=== PATIENT | male | born 1970 | race American Indian/Alaskan Native ===

== ENCOUNTER 2017-07-08 14:59 | Emergency (ER) | payer MEDICARE, MEDICAID ==
[2017-07-08 15:18] VITALS: BMI 23.7
[2017-07-08 15:39] VITALS: O2SAT 98
--- NOTE | 2017-07-08 17:34 | RAD ---
PROCEDURE: Radiographs of the Lumbar Spine. HISTORY: fall 06/25 COMPARISON: Lumbar spine radiographs performed 02/14/16 FINDINGS: BONES: Alignment appears satisfactory. No listhesis. No acute displaced fracture identified. DISC SPACES: Unremarkable. OTHER FINDINGS: None. IMPRESSION: No acute displaced fracture or subluxation identified.
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
[2017-07-08 18:14] VITALS: BP 122/90; PULSE 93; RESP 20; TEMP 98.5
== END 2017-07-08 18:12 | disposition home or self-care (01) ==
LOC: C.ER 14:59
DX: M54.5 Low back pain (principal)

== ENCOUNTER 2017-07-29 08:08 | Emergency (ER) | payer MEDICARE, MEDICAID ==
[2017-07-29 08:09] VITALS: BMI 23.7
[2017-07-29 08:23] VITALS: BP 127/80; PULSE 98; RESP 18; TEMP 97; O2SAT 98
--- NOTE | 2017-07-29 09:16 | C.PDOC ---
History Of Present Illness 46 y/o male presents to ED with complaints of sore throat for 4 days and productive cough developed today. Patient states he took Tylenol with mild relief but symptoms worsen, took 3 dose of amoxicillin from a friend with no relief 3 days ago. Patient reports chills but denies documented fever, neck pain , neck stiffness, nausea, vomiting, chest pain, sob or any other complaints at this time. Time Seen by Provider: 07/29/17 08:49 Chief Complaint (Nursing): ENT Problem History Per: Patient History/Exam Limitations: None Onset/Duration Of Symptoms: Days Current Symptoms Are (Timing): Still Present Past Medical History Reviewed: Historical Data, Nursing Documentation, Vital Signs Vital Signs: Last Vital Signs Temp 97 F L 07/29/17 08:16 Pulse 98 H 07/29/17 08:16 Resp 18 07/29/17 09:20 BP 127/80 07/29/17 08:16 Pulse Ox 98 07/29/17 09:52 - Medical History PMH: Back Problems Surgical History: No Surg Hx Family History: States: No Known Family Hx - Social History Hx Alcohol Use: No Hx Substance Use: No - Immunization History Hx Tetanus Toxoid Vaccination: No Hx Influenza Vaccination: No Hx Pneumococcal Vaccination: No Review Of Systems Constitutional: Positive for: Chills. Negative for: Fever ENT: Positive for: Throat Pain Cardiovascular: Negative for: Chest Pain Respiratory: Negative for: Shortness of Breath Gastrointestinal: Negative for: Nausea, Vomiting Musculoskeletal: Negative for: Neck Pain Skin: Negative for: Rash Physical Exam - Physical Exam Appears: Non-toxic, No Acute Distress Skin: Warm, Dry, No Rash Head: Atraumatic, Normacephalic Eye(s): bilateral: Normal Inspection Ear(s): Bilateral: Normal Oral Mucosa: Moist Throat: Erythema, Exudate, Other (Uvula slightly deviated to right ) Neck: Supple Lymphatic: Adenopathy (Palpable on right chin) Cardiovascular: Rhythm Regular Respiratory: Normal Breath Sounds, No Rales, No Rhonchi, No Wheezing Gastrointestinal/Abdominal: Soft, No Tenderness, No Guarding, No Rebound Neurological/Psych: Oriented x3 ED Course And Treatment O2 Sat by Pulse Oximetry: 98 (RA) Pulse Ox Interpretation: Normal Disposition Counseled Patient/Family Regarding: Diagnosis, Need For Followup, Rx Given - Disposition Referrals: [facility] [Outside] Disposition: HOME/ ROUTINE Disposition Time: 09:14 Condition: STABLE Prescriptions: Ibuprofen [Motrin] 600 mg PO TID #15 tab Penicillin VK [Penicillin VK Tab] 500 mg PO Q6H #40 tab Instructions: Pharyngitis (ED) Forms: [facility] (Barbadian), General Discharge Instructions - POA Present On Arrival: None - Clinical Impression Clinical Impression: Pharyngitis - Scribe Statement The provider has reviewed the documentation as recorded by the Escobar Garcia All medical record entries made by the Escobar were at my direction and personally dictated by me. I have reviewed the chart and agree that the record accurately reflects my personal performance of the history, physical exam, medical decision making, and the department course for this patient. I have also personally directed, reviewed, and agree with the discharge instructions and disposition.
== END 2017-07-29 09:21 | disposition home or self-care (01) ==
LOC: C.ER 08:08
DX: J02.9 Acute pharyngitis, unspecified (principal)

== ENCOUNTER 2017-12-07 10:53 | Emergency (ER) | payer MEDICARE, MEDICAID ==
[2017-12-07 10:53] VITALS: BMI 23.7
[2017-12-07 11:05] VITALS: BP 117/75; PULSE 70; TEMP 99.2; O2SAT 99
[2017-12-07] MEDS ORDERED: Ciprofloxacin 0.3% OPTH SOLN AS STA (11:23)
--- NOTE | 2017-12-07 11:34 | C.PDOC ---
History Of Present Illness 47 year old male presents to the ED c/o left ear pain and discharge for the past 2-3 days. Patient denies any fever, chills, nausea, vomit, recent swimming , fall, injury, trauma. Time Seen by Provider: 12/07/17 11:15 Chief Complaint (Nursing): ENT Problem History Per: Patient History/Exam Limitations: None Onset/Duration Of Symptoms: Days (2-3) Current Symptoms Are (Timing): Still Present Quality (Ear): Pain W/Touch, Discharge Anticoagulant/Antiplatlet Use?: No Recent Aspirin Use: No Past Medical History Reviewed: Historical Data, Nursing Documentation, Vital Signs Vital Signs: Last Vital Signs Temp 99.2 F 12/07/17 11:02 Pulse 70 12/07/17 11:02 Resp 17 12/07/17 11:45 BP 117/75 12/07/17 11:02 Pulse Ox 99 12/07/17 11:42 - Medical History PMH: Back Problems Surgical History: No Surg Hx Family History: States: Unknown Family Hx - Social History Hx Alcohol Use: No Hx Substance Use: No - Immunization History Hx Tetanus Toxoid Vaccination: No Hx Influenza Vaccination: No Hx Pneumococcal Vaccination: No Review Of Systems Constitutional: Negative for: Fever ENT: Positive for: Ear Pain, Ear Discharge. Negative for: Nose Discharge, Nose Congestion, Throat Pain Respiratory: Negative for: Cough Gastrointestinal: Negative for: Nausea, Vomiting Skin: Negative for: Rash Physical Exam - Physical Exam Appears: Non-toxic, No Acute Distress Skin: Normal Color, Warm, Dry Head: Atraumatic, Normacephalic Eye(s): bilateral: Normal Inspection Ear(s): Left: Other (tragus tenderness, ear cannal erythematous and some exudates), Right: Normal Oral Mucosa: Moist Throat: Normal, No Erythema, No Exudate Extremity: Normal ROM Neurological/Psych: Oriented x3, Normal Speech Gait: Steady ED Course And Treatment O2 Sat by Pulse Oximetry: 99 (ON RA) Pulse Ox Interpretation: Normal Medical Decision Making Medical Decision Making: Impression: left ear pain Plan: * Ciloxan 1 drop Disposition Counseled Patient/Family Regarding: Diagnosis, Need For Followup, Rx Given - Disposition Referrals: Ruperto Chau MD [Staff Provider] - Disposition: HOME/ ROUTINE Disposition Time: 11:40 Condition: STABLE Additional Instructions: Apply 2-4 drops in affected ear twice daily for one week Take Tylenol or Motrin for pain Follow up with ENT if symptoms do not improve Prescriptions: Ciprofloxacin/Hydrocortisone [Cipro Hc Otic Suspension] 4 drop BID 7 Days #1 bottle Instructions: Outer Ear Infection (DC) Forms: [facility] (Danish) - POA Present On Arrival: None - Clinical Impression Clinical Impression: Otitis externa - PA / [employer] / Resident Statement MD/DO has reviewed & agrees with the documentation as recorded. - Scribe Statement The provider has reviewed the documentation as recorded by the Scribe González Fenton All medical record entries made by the Scribsagar were at my direction and personally dictated by me. I have reviewed the chart and agree that the record accurately reflects my personal performance of the history, physical exam, medical decision making, and the department course for this patient. I have also personally directed, reviewed, and agree with the discharge instructions and disposition.
[2017-12-07] MEDS ORDERED: Ciprofloxacin 0.3% OPTH SOLN ONE (11:39)
[2017-12-07 11:46] VITALS: RESP 17
== END 2017-12-07 11:45 | disposition home or self-care (01) ==
LOC: C.ER 10:53
DX: H60.92 Unspecified otitis externa, left ear (principal)

== ENCOUNTER 2018-05-09 08:59 | Emergency (ER) | payer MEDICARE, MEDICAID ==
[2018-05-09 08:59] VITALS: BMI 23.7
[2018-05-09 09:15] VITALS: RESP 18
--- NOTE | 2018-05-09 10:15 | C.PDOC ---
History Of Present Illness 47 y/o male c/o right ear fullness x 3 weeks, with decreased hearing when lying down on right side with ear to pillow. no fever or chills, no discharge from ear. no pain in ear. pt does use q-tips, has tried hydrogen peroxide with no improvement. Time Seen by Provider: 05/09/18 09:56 Chief Complaint (Nursing): ENT Problem History Per: Patient History/Exam Limitations: None Onset/Duration Of Symptoms: Days (21) Current Symptoms Are (Timing): Still Present Quality (Ear): Other (fullness) Symptoms Have Been: Continuous Severity: Mild Past Medical History Reviewed: Historical Data, Nursing Documentation, Vital Signs Vital Signs: Last Vital Signs Temp 98 F 05/09/18 09:04 Pulse 77 05/09/18 09:04 Resp 18 05/09/18 09:04 BP 127/72 05/09/18 09:04 Pulse Ox 98 05/09/18 09:04 - Medical History PMH: Back Problems Family History: States: Unknown Family Hx - Social History Hx Alcohol Use: No Hx Substance Use: No - Immunization History Hx Tetanus Toxoid Vaccination: No Hx Influenza Vaccination: No Hx Pneumococcal Vaccination: No Review Of Systems Constitutional: Negative for: Fever, Chills ENT: Positive for: Other (ear fullness, right). Negative for: Ear Pain, Ear Discharge, Mouth Pain, Mouth Swelling, Throat Pain Respiratory: Negative for: Cough Skin: Negative for: Rash Neurological: Negative for: Weakness, Numbness Physical Exam - Physical Exam Appears: Non-toxic, No Acute Distress Skin: Warm, Dry Head: Atraumatic, Normacephalic Eye(s): bilateral: Normal Inspection Ear(s): Left: Normal, Right: Other (whitish debris in canal. no erythema noted, tm not visualized, narrow canals. ) Nose: No Discharge ED Course And Treatment O2 Sat by Pulse Oximetry: 98 Medical Decision Making Medical Decision Making: pt with ear fullness, with whitish debris in canal, unable to visualize tm. possible cerumen vs otitis externa; will tx with antibiotics topical and f/u ent Disposition Counseled Patient/Family Regarding: Diagnosis, Need For Followup, Rx Given - Disposition Referrals: Jenny Nino MD [Medical Doctor] - Ruperto Chau MD [Staff Provider] - Disposition: HOME/ ROUTINE Disposition Time: 10:13 Condition: GOOD Additional Instructions: Use ear drops as prescribed, Do not use q-tips. Follow up with Dr Nino and also with Dr Chau (ear doctor). Prescriptions: Neomycin/Polymyxin/Hydrocortis [Cortisporin Otic Susp] 4 drop AD QID #1 bottle Forms: [facility] (Bahraini), General Discharge Instructions - Clinical Impression Clinical Impression: Sensation of fullness in right ear
[2018-05-09 10:25] VITALS: BP 132/68; PULSE 74; TEMP 98.1
[2018-05-09 10:26] VITALS: O2SAT 98
== END 2018-05-09 10:27 | disposition home or self-care (01) ==
LOC: C.ER 08:59
DX: H93.8X1 Other specified disorders of right ear (principal)